=== PATIENT | female | born 1965 | race Caucasian/White ===

== ENCOUNTER 2017-01-27 08:36 | Outpatient (CLI) | payer BC ==
--- NOTE | 2017-01-27 11:10 | MMO ---
BILATERAL SCREENING MAMMOGRAM: Date: 01/27/17 INDICATION: Baseline exam. COMPARISON: None. FINDINGS: Interpretation of this exam was assisted with computer-aided detection. There are scattered fibroglandular elements bilaterally. There is an intramammary lymph node seen wit hin the outer aspect of the right breast. There are scattered benign-appearing calcifications bilater ally. No suspicious mass, cluster of microcalcifications, or area of architectural distortion is evident. IMPRESSION: BIRADS 2: Benign Finding(s) Recommend routine annual mammographic screening. POS: BETTY
== END 2017-01-27 08:37 | disposition home or self-care (01) ==
LOC: MAMMO 08:36
PROVIDERS: ATTEND Family Medicine
DX: Z12.31 Encounter for screening mammogram for malignant neoplasm of breast (principal)
CPT/HCPCS: 77067; G0202

== ENCOUNTER 2021-02-19 12:44 | Outpatient (CLI) | payer BC | END 2021-02-19 12:45 | disposition home or self-care (01) | LOC: BICMAMMO 12:44 | PROVIDERS: ATTEND Family Medicine | DX: Z12.31 Encounter for screening mammogram for malignant neoplasm of breast (principal) | CPT/HCPCS: 77063; 77067 ==